=== PATIENT | male | born 1965 | race African-American/Black ===

== ENCOUNTER 2017-08-18 09:35 | Emergency (ER) | payer OTHER ==
[~2017-08-18 09:35] MED LIST: HYDROCODONE BIT1 T11 PO; PHENERGAN25 M1 PO; PREDNISONE20 MG PO; ZITHROMAX250 MG PO
[2017-08-18 09:55] LABS: BASO % 0.5 % (0.0-1.0); EOS % 0.5 % (1.0-4.0); HEMOGLOBIN 16.2 g/dl (14.0-18.0); LYMPH # 1.2 10*3/uL (1.3-4.4); LYMPH % 32.1 % (27.0-41.0); MEAN CELL VOLUME 88.4 fl (80.0-94.0); MEAN CORPUSCULAR HGB 29.8 pg (27.0-31.0); MEAN CORPUSCULAR HGB CONC 33.8 g/dl (33.0-37.0); MEAN PLATELET VOLUME 10.1 fl (9.6-12.3); MONO # 0.4 10*3/uL (0.1-1.0); MONO % 11.1 % (3.0-9.0); NEUT % 55.5 % (47.0-73.0); PLATELET COUNT AUTOMATED 214 10*3/uL (130-400); RED BLOOD COUNT 5.43 10*6/uL (4.50-5.90); WHITE BLOOD COUNT 3.7 10*3/uL (4.8-10.8)
[2017-08-18 10:10] LABS: ALBUMIN 4.2 gm/dl (3.1-4.5); ALKALINE PHOSPHATASE 87 U/L (45-117); BUN 10 mg/dl (7-24); CHLORIDE 100 mmol/L (98-107); CREATININE 0.93 mg/dL (0.70-1.30); LIPASE 159 U/L (73-393); POTASSIUM 4.1 mmol/L (3.5-5.1); SGOT/AST 32 IU/L (3-35); SGPT/ALT 21 U/L (12-78); SODIUM 134 mmol/L (136-145); TOTAL PROTEIN 8.6 gm/dL (6.4-8.2)
[2017-08-18] MEDS ORDERED: TAMIFLU 75MG CA75 MG PO (10:51)
[2017-08-18] MEDS ORDERED: ZOFRAN4 MG PO (10:51)
== END 2017-08-18 11:14 | disposition home or self-care (01) ==
LOC: ED 09:35
PROVIDERS: Nurse Practitioner Family
DX: J11.1 Influenza due to unidentified influenza virus with other respiratory manifestations (principal); R03.0 Elevated blood-pressure reading, without diagnosis of hypertension; Z79.899 Other long term (current) drug therapy